=== PATIENT | female | born 1950 | race Two or more races ===

== ENCOUNTER 2017-07-10 10:57 | Day surgery (SDC) | payer MEDICARE ==
[2017-07-09 13:00] LABS: Basophils # (auto) 0.1 uL; Eosinophils # (auto) 0.2 uL; Eosinophils % (auto) 2.5 % (0.0-7.0); Hematocrit 42.1 % (36.0-46.0); Hemoglobin 13.8 g/dL (12.2-16.2); Lymphocytes # (auto) 2.3 uL; Lymphocytes % (auto) 32.9 % (10.0-50.0); Mean Corpuscular Hemoglobin 29.2 pg (28.0-32.0); Mean Corpuscular Hgb Conc. 32.7 g/dL (32.0-36.0); Mean Corpuscular Volume 89.2 fL (80.0-100.0); Mean Platelet Volume 9.4 fL (6.9-10.8); Monocytes # (auto) 0.4 uL; Monocytes % (auto) 5.2 % (0.0-12.0); Neutrophils # (auto) 4.1 uL; Neutrophils % (auto) 58.4 % (37.0-80.0); Nucleated Red Blood Cells % 0.1 %; Platelet Count (auto) 281 10^3/uL (140-450); Red Cell Distribution Width 13.9 % (11.8-14.3); Urine Bilirubin Negative (Negative); Urine Blood 1+ /uL (Negative); Urine Color Yellow (Yellow); Urine Glucose Normal (Normal); Urine Ketone Negative (Negative); Urine Mucus FEW (None Seen); Urine Nitrite Negative (Negative); Urine RBC 4 /hpf (0 - 4); Urine Squamous Epithelial Cell FEW /hpf (<5); Urine Urobilinogen Normal (Negative); White Blood Cell 7.1 10^3/uL (4.4-10.8)
[2017-07-09 13:09] LABS: INR 0.92 (0.9-1.15); Partial Thromboplastin Time 29.5 sec (22.64-33.71)
[2017-07-09 13:19] LABS: Albumin 3.8 g/dL (3.4-5.0); BUN/Creatinine Ratio 23.8; Bilirubin, Total 0.6 mg/dL (0.2-1.0); Potassium 4.5 mmol/L (3.5-5.1); Total Protein 9.1 g/dL (6.4-8.2)
[~2017-07-10] VITALS: Ht 152.4 cm; Wt 63.0 kg
[~2017-07-10 10:57] MED LIST: ALLO100T PO; AMLO10TA2 PO; ASPI81TA27 PO; LEVO100T8 PO; METO-158 PO; SIMV-8 PO
[2017-07-10] MEDS ORDERED: ceFAZolin 1GM/50ML 50 ML IV ONE (12:00)
[2017-07-10] MEDS ORDERED: fentaNYL CITRATE 100 MCG/2 ML VL ONE (14:05)
[2017-07-10] MEDS ORDERED: MIDAZOLAM HCL 1MG/1ML-2 ML VIAL ONE (14:05)
[2017-07-10] MEDS ORDERED: PROPOFOL 10 MG/ML 20 ML IV ONE (14:06)
[2017-07-10] MEDS ORDERED: LIDOCAINE HCL 2 %PF INJ 10ML AMP IJ ONE (14:06)
[2017-07-10] MEDS ORDERED: KETAMINE HCL 1 ML ONE (14:29)
[2017-07-10] MEDS ORDERED: diphenhdrAMINE HCL 50 MG/1 ML VL ONE (14:35)
[2017-07-10] MEDS ORDERED: GLYCOPYRROLATE 0.2 MG/ML 1ML VIAL ONE (14:40)
[2017-07-10] MEDS ORDERED: NALOXONE HCL 0.4 MG/ML VIAL IV PRN (15:15)
[2017-07-10] MEDS ORDERED: HYDROmorphone HCL 2 MG/ML VL IV PRN (15:15)
[2017-07-10] MEDS ORDERED: ONDANSETRON HCL 4 MG/2 ML VIAL IV ONE (15:15)
[2017-07-10] MEDS ORDERED: hydrALAZINE HCL 20 MG/ML VL IV PRN (15:30)
[2017-07-10 16:14] VITALS: BP 143/81
== END 2017-07-10 16:14 | disposition home or self-care (01) ==
LOC: SUR 10:57
PROVIDERS: ATTEND Podiatrist Foot & Ankle Surgery
DX: M72.2 Plantar fascial fibromatosis (principal); D69.6 Thrombocytopenia, unspecified; E66.9 Obesity, unspecified; Z90.49 Acquired absence of other specified parts of digestive tract; Z90.710 Acquired absence of both cervix and uterus; E89.0 Postprocedural hypothyroidism
CPT/HCPCS: 28060; 36415; 80053; 81001; 85025; 85610; 85730; J0360; J0690; J1200; J2250; J2704; J3010